=== PATIENT | female | born 2000 | race Caucasian/White ===

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

== ENCOUNTER 2019-10-13 17:36 | Inpatient (IN) | payer MEDICAID ==
[2019-10-13] MEDS ORDERED: Sodium Chloride 0.9% 2.5 ML Syringe FLUSH PRN (19:10)
[2019-10-13] MEDS ORDERED: Water For Irrigation,Sterile 1,000 ML Container IRR PRN (19:10)
[2019-10-13] MEDS ORDERED: Ondansetron 4 MG/2 ML SDV IVPUSH PRN (19:10)
[2019-10-13] MEDS ORDERED: Tranexamic Acid 1,000 MG in Sodium Chloride 0.9% 100 ML IV PRN (19:10)
[2019-10-13] MEDS ORDERED: Nalbuphine 10 MG/1 ML Vial IVPUSH PRN (19:10)
[2019-10-13] MEDS ORDERED: Sodium Chloride 0.9% 10 ML Syringe FLUSH PRN (19:10)
[2019-10-13] MEDS ORDERED: Carboprost Tromethamine 250 MCG/1 ML Amp IM PRN (19:10)
[2019-10-13] MEDS ORDERED: Sodium Chloride 0.9% 10 ML SDV IV PRN (19:10)
[2019-10-13] MEDS ORDERED: Lidocaine 1% 50 ML MDV INJECT PRN (19:10)
[2019-10-13] MEDS ORDERED: Misoprostol 200 MCG Tab PO PRN (19:10)
[2019-10-13] MEDS ORDERED: Methylergonovine 0.2 MG/1 ML Amp IM PRN (19:10)
[2019-10-13] MEDS ORDERED: Oxytocin/0.9 % Sodium Chloride 30 UNIT/500 ML BAG IV SCH (19:15)
--- NOTE | 2019-10-13 19:27 | PCM.LDHP ---
L&D History of Present Illness - General Date of Service: 10/13/19 Admit Problem/Dx: Patient Status Order with Admit Dx/Problem 10/13/19 17:42 Patient Status [ADT] Routine 10/13/19 19:10 Patient Status [ADT] Routine Admission Diagnosis/Problem Admission Diagnosis/Problem 10/13/19 19:21 19yo EDC 10/07/2019 40 6/7wks, A+, RI, GBS pos. Comes in active labor, desires epidural. Source of Information: Patient History Limitations: Reports: No Limitations - History of Present Illness Improves with: Reports: None Worsens with: Reports: None Associated Symptoms: Reports: N - Related Data Allergies/Adverse Reactions: Allergies Allergy/AdvReac Type Severity Reaction Status Date / Time No Known Allergies Allergy Verified 01/25/17 12:47 Home Medications: Home Meds Albuterol [Proventil Neb Soln] 2.5 mg NEB Q4HRRT PRN 01/25/17 [History] Cetirizine [ZyrTEC] 10 mg PO DAILY 01/25/17 [History] Albuterol Sulfate [Proair Hfa] 2 puff INH Q4HR #1 inhaler 01/28/17 [Rx] Fluticasone/Salmeterol [Advair Diskus 500-50] 1 puff INH BID #1 diskus 01/28/17 [Rx] Montelukast Sodium [Singulair] 10 mg PO DAILY 30 Days #30 tablet 01/28/17 [Rx] Prednisone [IMW: predniSONE] 40 mg PO WITHBREAKFAST #10 tab 01/28/17 [Rx] Past Medical History HEENT History: Reports: None Cardiovascular History: Reports: None Respiratory History: Reports: Asthma Gastrointestinal History: Reports: None Genitourinary History: Reports: None 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 Musculoskeletal History: Reports: None Neurological History: Reports: None Psychiatric History: Reports: None Endocrine/Metabolic History: Reports: None Hematologic History: Reports: None Immunologic History: Reports: None Oncologic (Cancer) History: Reports: None Dermatologic History: Reports: None - Infectious Disease History Infectious Disease History: Reports: None - Past Surgical History Head Surgeries/Procedures: Reports: None HEENT Surgical History: Reports: None Cardiovascular Surgical History: Reports: None Respiratory Surgical History: Reports: None GI Surgical History: Reports: None Endocrine Surgical History: Reports: None Neurological Surgical History: Reports: None Dermatological Surgical History: Reports: None Social & Family History - Family History Family Medical History: Noncontributory - Caffeine Use Caffeine Use: Reports: None H&P Review of Systems - Review of Systems: Review Of Systems: See Below General: Reports: No Symptoms HEENT: Reports: No Symptoms Pulmonary: Reports: No Symptoms Cardiovascular: Reports: No Symptoms Gastrointestinal: Reports: No Symptoms Genitourinary: Reports: No Symptoms Musculoskeletal: Reports: No Symptoms Skin: Reports: No Symptoms Psychiatric: Reports: No Symptoms Neurological: Reports: No Symptoms Hematologic/Lymphatic: Reports: No Symptoms Immunologic: Reports: No Symptoms L&D Exam - Exam Exam: See Below - OB Specific Contraction Intensity: Strong Movement: Active Heart Tones: Present Heart Tones per Min: 150 Heart Rate (FHR) Variability: Moderate (6-25 bmp) Presentation: Vertex - Murphy Score Murphy Score Cervix Position: Posterior Murphy Score Consistency: Soft Murphy Score Effacement: >80% Murphy Score Dilation: > 5 cm Murphy Score Infant's Station: -2 Murphy Score Total: 9 - Exam General: Alert, Oriented, Cooperative HEENT: Hearing Intact Lungs: Clear to Auscultation, Normal Respiratory Effort. No: Decreased Breath Sounds Cardiovascular: Regular Rate, Regular Rhythm, Normal S1, Normal S2 GI/Abdominal Exam: Soft, Non-Tender, Pelvis Stable Rectal Exam: Deferred Genitourinary: Normal external exam, Normal bimanual exam. No: Cervical fluid, Vaginal bleeding Extremities: Normal Inspection, Normal Range of Motion Skin: Warm, Dry, Intact Neurological: Cranial Nerves Intact, Normal Speech, Normal Tone, Sensation Intact Psychiatric: Alert, Normal Affect, Normal Mood - Patient Data Lab Results Last 24 hrs: Laboratory Results - last 24 hr 10/13/19 Range/Units 17:00 Urine Color YELLOW Urine Appearance CLEAR Urine pH 6.5 (5.0-8.0) Ur Specific [place] 1.020 (1.001-1.035) Urine Protein NEGATIVE (NEGATIVE) mg/dL Urine Glucose (UA) NEGATIVE (NEGATIVE) mg/dL Urine Ketones NEGATIVE (NEGATIVE) mg/dL Urine Occult Blood NEGATIVE (NEGATIVE) Urine Nitrite NEGATIVE (NEGATIVE) Urine Bilirubin NEGATIVE (NEGATIVE) Urine Urobilinogen 0.2 (<2.0) EU/dL Ur Leukocyte Esterase NEGATIVE (NEGATIVE) - Problem List (1) Supervision of normal IUP (intrauterine ) in primigravida SNOMED Code(s): 17634618, 417165363, 325002278, 016488350 ICD Code: Z34.00 - ENCNTR FOR SUPRVSN OF NORMAL FIRST , UNSP TRIMESTER Status: Acute Priority: High Current Visit: Yes Qualifiers: Trimester: third trimester Qualified Code(s): Z34.03 - Encounter for supervision of normal first , third trimester Problem List Initiated/Reviewed/Updated: Yes Orders Last 24hrs: Active Orders 24 hr Category Date Time Status Patient Status [ADT] Routine ADT 10/13/19 19:10 Active Heart Tones [RC] CONTINUOUS Care 10/13/19 19:10 Active Non Stress Test [RC] PER UNIT ROUTINE Care 10/13/19 17:42 Active May Shower [RC] ASDIRECTED Care 10/13/19 19:10 Active Notify Provider [RC] PRN Care 10/13/19 19:10 Active Peripheral IV Care [RC] PRN Care 10/13/19 19:10 Active Up ad Otilia [RC] ASDIRECTED Care 10/13/19 17:42 Active Vaginal Exam [RC] Click to Edit Care 10/13/19 17:42 Active Vital Signs [RC] PER UNIT ROUTINE Care 10/13/19 17:42 Active CBC W/O DIFF,HEMOGRAM [HEME] Routine Lab 10/13/19 19:10 Ordered RPR (SYPHILIS SERO) W/ RFLX [REF] Routine Lab 10/13/19 19:10 Ordered TYPE AND SCREEN [BBK] Routine Lab 10/13/19 19:10 Ordered Ampicillin 1 gm Med 10/14/19 00:01 Active Sodium Chloride 0.9% [Normal Saline] 50 ml IV Q4H Ampicillin 2 gm Med 10/13/19 20:00 Active Sodium Chloride 0.9% [Normal Saline] 100 ml IV ONETIME Carboprost Tromethamine [Hemabate DS] Med 10/13/19 19:10 Active 250 mcg IM ASDIRECTED PRN Lactated Ringers [Ringers, Lactated] 1,000 ml Med 10/13/19 19:15 Active IV ASDIRECTED Lidocaine 1% [Xylocaine 1%] Med 10/13/19 19:10 Active 50 ml INJECT ONETIME PRN Methylergonovine [Methergine] Med 10/13/19 19:10 Active 0.2 mg IM ASDIRECTED PRN Nalbuphine [Nubain] Med 10/13/19 19:10 Active 10 mg IVPUSH Q1H PRN Ondansetron [Zofran] Med 10/13/19 19:10 Active 4 mg IVPUSH Q6H PRN Oxytocin/0.9 % Sodium Chloride [Oxytocin 30 Unit/500 ML Med 10/13/19 19:15 Ordered -NS] 30 unit in 500 ml IV TITRATE Sodium Chloride 0.9% [Normal Saline] Med 10/13/19 19:10 Ordered 10 ml IV ASDIRECTED PRN Sodium Chloride 0.9% [Saline Flush] Med 10/13/19 19:10 Ordered 10 ml FLUSH ASDIRECTED PRN Sodium Chloride 0.9% [Saline Flush] Med 10/13/19 19:10 Active 2.5 ml FLUSH ASDIRECTED PRN Tranexamic Acid [Cyklokapron] 1,000 mg Med 10/13/19 19:10 Active Sodium Chloride 0.9% [Normal Saline] 100 ml IV ONETIME Water For Irrigation,Sterile [Sterile Water for Med 10/13/19 19:10 Active Irrigation] 1,000 ml IRR ASDIRECTED PRN miSOPROStoL [Cytotec] Med 10/13/19 19:10 Active 200 mcg PO ONETIME PRN Scalp Electrode [WOMSER] Per Unit Routine Oth 10/13/19 19:10 Ordered Peripheral IV Insertion Adult [OM.PC] Routine Oth 10/13/19 19:10 Ordered Resuscitation Status Routine Resus Stat 10/13/19 17:42 Ordered Medication Orders Carboprost Tromethamine (Hemabate Ds) 250 mcg IM ASDIRECTED PRN PRN Reason: Post Hemorrhage Tranexamic Acid 1,000 mg/ (Sodium Chloride) 110 mls @ 660 mls/hr IV ONETIME PRN PRN Reason: Bleeding Lactated Ringer's (Ringers, Lactated) 1,000 mls @ 150 mls/hr IV ASDIRECTED BROCK Oxytocin/Sodium Chloride (Oxytocin 30 Unit/500 Ml-Ns) 30 unit in 500 mls @ 999 mls/hr IV TITRATE BROCK Ampicillin Sodium 2 gm/ Sodium (Chloride) 100 mls @ 200 mls/hr IV ONETIME ONE Stop: 10/13/19 20:29 Ampicillin Sodium 1 gm/ Sodium (Chloride) 50 mls @ 100 mls/hr IV Q4H [facility] Lidocaine HCl (Xylocaine 1%) 50 ml INJECT ONETIME PRN PRN Reason: Laceration repair Methylergonovine Maleate (Methergine) 0.2 mg IM ASDIRECTED PRN PRN Reason: Post Hemorrhage Misoprostol (Cytotec) 200 mcg PO ONETIME PRN PRN Reason: Post Hemorrhage Nalbuphine HCl (Nubain) 10 mg IVPUSH Q1H PRN PRN Reason: Pain (severe 7-10) Ondansetron HCl (Zofran) 4 mg IVPUSH Q6H PRN PRN Reason: Nausea/Vomiting Sodium Chloride (Saline Flush) 10 ml FLUSH ASDIRECTED PRN PRN Reason: Keep Vein Open Sodium Chloride (Saline Flush) 2.5 ml FLUSH ASDIRECTED PRN PRN Reason: Keep Vein Open Sodium Chloride (Normal Saline) 10 ml IV ASDIRECTED PRN PRN Reason: IV Use Sterile Water (Sterile Water For Irrigation) 1,000 ml IRR ASDIRECTED PRN PRN Reason: delivery Assessment/Plan Comment:: Labor A: 19yo EDC 10/07/2019 40 6/7wks, A+, RI, GBS pos. Comes in active labor, desires epidural. P: Admit, amp for GBS pos, epidural now, anticipate . Dr Wright updated.
[2019-10-13] MEDS: Lactated Ringers 1,000 ML IV SCH (19:39)
[2019-10-13] MEDS ORDERED: Ampicillin 2 GM in Sodium Chloride 0.9% 100 ML IV ONE (20:00)
[2019-10-13] MEDS: Ampicillin 1 GM in Sodium Chloride 0.9% 50 ML IV SCH (23:24)
[2019-10-13] MEDS ORDERED: Bupivicaine/fentaNYL/NS 250 ML ONE (23:59)
--- NOTE | 2019-10-14 00:29 | PCM.PREANE ---
Preanesthetic Assessment - Procedure Proposed Procedure: Continuous Labor Epidural - Anesthesia/Transfusion/Family Hx Anesthesia History: No Prior Anesthesia Transfusion History: No Prior Transfusion(s) - Review of Systems General: No Symptoms Pulmonary: No Symptoms Cardiovascular: No Symptoms Gastrointestinal: No Symptoms Neurological: No Symptoms Other: Reports: None - Physical Assessment Height: 5 ft 11 in Weight: 122.47 kg ASA Class: 2 Mental Status: Alert & Oriented x3 Airway Class: Mallampati = 2 Dentition: Reports: Normal Dentition ROM/Head Extension: Full Lungs: Clear to Auscultation, Normal Respiratory Effort Cardiovascular: Regular Rate, Regular Rhythm - Lab Values: Laboratory Last Values WBC 8.73 K/uL (4.0-11.0) 10/13/19 19: RBC 3.80 M/uL (4.30-5.90) L 10/13/19 19:28 Hgb 11.2 g/dL (12.0-16.0) L 10/13/19 19: Hct 34.4 % (36.0-46.0) L 10/13/19 19:28 MCV 90.5 fL (80.0-98.0) 10/13/19 19:28 MCH 29.5 pg (27.0-32.0) 10/13/19 19:28 MCHC 32.6 g/dL (31.0-37.0) 10/13/19 19:28 RDW Std Deviation 46.7 fl (28.0-62.0) 10/13/19 19:28 RDW Coeff of Robson 14 % (11.0-15.0) 10/13/19 19:28 Plt Count 258 K/uL (150-400) 10/13/19 19:28 MPV 10.90 fL (7.40-12.00) 10/13/19 19:28 Nucleated RBC % 0.0 /100WBC 10/13/19 19:28 Nucleated RBCs # 0 K/uL 10/13/19 19:28 Urine Color YELLOW 10/13/19 17:00 Urine Appearance CLEAR 10/13/19 17:00 Urine pH 6.5 (5.0-8.0) 10/13/19 17:00 Ur Specific [place] 1.020 (1.001-1.035) 10/13/19 17:00 Urine Protein NEGATIVE mg/dL (NEGATIVE) 10/13/19 17:00 Urine Glucose (UA) NEGATIVE mg/dL (NEGATIVE) 10/13/19 17:00 Urine Ketones NEGATIVE mg/dL (NEGATIVE) 10/13/19 17:00 Urine Occult Blood NEGATIVE (NEGATIVE) 10/13/19 17:00 Urine Nitrite NEGATIVE (NEGATIVE) 10/13/19 17:00 Urine Bilirubin NEGATIVE (NEGATIVE) 10/13/19 17:00 Urine Urobilinogen 0.2 EU/dL (<2.0) 10/13/19 17:00 Ur Leukocyte Esterase NEGATIVE (NEGATIVE) 10/13/19 17:00 Blood Type A POSITIVE 10/13/19 19:32 Antibody Screen NEGATIVE 10/13/19 19:32 - Allergies Allergies/Adverse Reactions: Allergies Allergy/AdvReac Type Severity Reaction Status Date / Time No Known Allergies Allergy Verified 01/25/17 12:47 - Anesthesia Plan Free Text/Narrative:: Continuous Labor Epidural - Acknowledgements Anesthesia Type Planned: Epidural Pt an Appropriate Candidate for the Planned Anesthesia: Yes Alternatives and Risks of Anesthesia Discussed w Pt/Guardian: Yes Pt/Guardian Understands and Agrees with Anesthesia Plan: Yes PreAnesthesia Questionnaire HEENT History: Reports: None Cardiovascular History: Reports: None Respiratory History: Reports: Asthma Gastrointestinal History: Reports: None Genitourinary History: Reports: None 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 Para: 0 LMP (Approximate): Musculoskeletal History: Reports: None Neurological History: Reports: None Psychiatric History: Reports: None Endocrine/Metabolic History: Reports: None Hematologic History: Reports: None Immunologic History: Reports: None Oncologic (Cancer) History: Reports: None Dermatologic History: Reports: None - Infectious Disease History Infectious Disease History: Reports: None - Past Surgical History Head Surgeries/Procedures: Reports: None HEENT Surgical History: Reports: Oral Surgery Other HEENT Surgeries/Procedures: [place] teeth Cardiovascular Surgical History: Reports: None Respiratory Surgical History: Reports: None GI Surgical History: Reports: None Endocrine Surgical History: Reports: None Neurological Surgical History: Reports: None Dermatological Surgical History: Reports: None - SUBSTANCE USE Smoking Status *Q: Never Smoker Second Hand Smoke Exposure: No Recreational Drug Use History: No - HOME MEDS Home Medications: Home Meds Albuterol [Proventil Neb Soln] 2.5 mg NEB Q4HRRT PRN 01/25/17 [History] Cetirizine [ZyrTEC] 10 mg PO DAILY 01/25/17 [History] Albuterol Sulfate [Proair Hfa] 2 puff INH Q4HR #1 inhaler 01/28/17 [Rx] Fluticasone/Salmeterol [Advair Diskus 500-50] 1 puff INH BID #1 diskus 01/28/17 [Rx] Montelukast Sodium [Singulair] 10 mg PO DAILY 30 Days #30 tablet 01/28/17 [Rx] Prednisone [IMW: predniSONE] 40 mg PO WITHBREAKFAST #10 tab 01/28/17 [Rx] - CURRENT (IN HOUSE) MEDS Current Meds: Current Medications Carboprost Tromethamine (Hemabate Ds) 250 mcg IM ASDIRECTED PRN PRN Reason: Post Hemorrhage Tranexamic Acid 1,000 mg/ (Sodium Chloride) 110 mls @ 660 mls/hr IV ONETIME PRN PRN Reason: Bleeding Lactated Ringer's (Ringers, Lactated) 1,000 mls @ 150 mls/hr IV ASDIRECTED [facility] Last Infusion: 10/13/19 23:57 Dose: 999 mls/hr Oxytocin/Sodium Chloride (Oxytocin 30 Unit/500 Ml-Ns) 30 unit in 500 mls @ 999 mls/hr IV TITRATE [facility] Ampicillin Sodium 1 gm/ Sodium (Chloride) 50 mls @ 100 mls/hr IV Q4H [facility] Last Infusion: 10/13/19 23:57 Dose: Infused Lidocaine HCl (Xylocaine 1%) 50 ml INJECT ONETIME PRN PRN Reason: Laceration repair Methylergonovine Maleate (Methergine) 0.2 mg IM ASDIRECTED PRN PRN Reason: Post Hemorrhage Misoprostol (Cytotec) 200 mcg PO ONETIME PRN PRN Reason: Post Hemorrhage Nalbuphine HCl (Nubain) 10 mg IVPUSH Q1H PRN PRN Reason: Pain (severe 7-10) Ondansetron HCl (Zofran) 4 mg IVPUSH Q6H PRN PRN Reason: Nausea/Vomiting Sodium Chloride (Saline Flush) 10 ml FLUSH ASDIRECTED PRN PRN Reason: Keep Vein Open Sodium Chloride (Saline Flush) 2.5 ml FLUSH ASDIRECTED PRN PRN Reason: Keep Vein Open Sodium Chloride (Normal Saline) 10 ml IV ASDIRECTED PRN PRN Reason: IV Use Sterile Water (Sterile Water For Irrigation) 1,000 ml IRR ASDIRECTED PRN PRN Reason: delivery Discontinued Medications Ampicillin Sodium 2 gm/ Sodium (Chloride) 100 mls @ 200 mls/hr IV ONETIME ONE Stop: 10/13/19 20:29 Last Admin: 10/13/19 19:43 Dose: 200 mls/hr Fentanyl/Bupivacaine HCl (Fentanyl/Bupivacaine/Ns 2 Mcg-0.125% 250 Ml) Confirm Administered Dose 250 mls @ as directed .ROUTE .STK-MED ONE Stop: 10/14/19 00:00
[2019-10-14] MEDS ORDERED: Oxytocin/0.9 % Sodium Chloride 30 UNIT/500 ML BAG IV SCH (00:45)
[2019-10-14] MEDS: Lactated Ringers 1,000 ML IV SCH (00:46)
[2019-10-14] MEDS: Ampicillin 1 GM in Sodium Chloride 0.9% 50 ML IV SCH ×2 (03:30→08:05)
--- NOTE | 2019-10-14 08:23 | PCM.PN ---
- General Info Date of Service: 10/14/19 Admission Dx/Problem (Free Text): Patient Status Order with Admit Dx/Problem 10/13/19 17:42 Patient Status [ADT] Routine 10/13/19 19:10 Patient Status [ADT] Routine Admission Diagnosis/Problem Admission Diagnosis/Problem 10/13/19 19:21 19yo EDC 10/07/2019 40 6/7wks, A+, RI, GBS pos. Comes in active labor, desires epidural. Functional Status: Reports: New Symptoms (Increased pain with epidural) - Review of Systems General: Reports: No Symptoms HEENT: Reports: No Symptoms Pulmonary: Reports: No Symptoms Cardiovascular: Reports: No Symptoms Gastrointestinal: Reports: No Symptoms Genitourinary: Reports: No Symptoms Musculoskeletal: Reports: No Symptoms Skin: Reports: No Symptoms Neurological: Reports: No Symptoms Psychiatric: Reports: No Symptoms - Patient Data Weight - Most Recent: 122.47 kg Lab Results Last 24 Hours: Laboratory Results - last 24 hr 10/13/19 10/13/19 10/13/19 Range/Units 17:00 19:28 19:32 WBC 8.73 (4.0-11.0) K/uL RBC 3.80 L (4.30-5.90) M/uL Hgb 11.2 L (12.0-16.0) g/dL Hct 34.4 L (36.0-46.0) % MCV 90.5 (80.0-98.0) fL MCH 29.5 (27.0-32.0) pg MCHC 32.6 (31.0-37.0) g/dL RDW Std Deviation 46.7 (28.0-62.0) fl RDW Coeff of Robson 14 (11.0-15.0) % Plt Count 258 (150-400) K/uL MPV 10.90 (7.40-12.00) fL Nucleated RBC % 0.0 /100WBC Nucleated RBCs # 0 K/uL Urine Color YELLOW Urine Appearance CLEAR Urine pH 6.5 (5.0-8.0) Ur Specific [place] 1.020 (1.001-1.035) Urine Protein NEGATIVE (NEGATIVE) mg/dL Urine Glucose (UA) NEGATIVE (NEGATIVE) mg/dL Urine Ketones NEGATIVE (NEGATIVE) mg/dL Urine Occult Blood NEGATIVE (NEGATIVE) Urine Nitrite NEGATIVE (NEGATIVE) Urine Bilirubin NEGATIVE (NEGATIVE) Urine Urobilinogen 0.2 (<2.0) EU/dL Ur Leukocyte Esterase NEGATIVE (NEGATIVE) Blood Type A POSITIVE Antibody Screen NEGATIVE Med Orders - Current: Current Medications Carboprost Tromethamine (Hemabate Ds) 250 mcg IM ASDIRECTED PRN PRN Reason: Post Hemorrhage Tranexamic Acid 1,000 mg/ (Sodium Chloride) 110 mls @ 660 mls/hr IV ONETIME PRN PRN Reason: Bleeding Lactated Ringer's (Ringers, Lactated) 1,000 mls @ 150 mls/hr IV ASDIRECTED [facility] Last Infusion: 10/14/19 03:44 Dose: 50 mls/hr Oxytocin/Sodium Chloride (Oxytocin 30 Unit/500 Ml-Ns) 30 unit in 500 mls @ 999 mls/hr IV TITRATE [facility] Ampicillin Sodium 1 gm/ Sodium (Chloride) 50 mls @ 100 mls/hr IV Q4H [facility] Last Admin: 10/14/19 08:05 Dose: 100 mls/hr Oxytocin/Sodium Chloride (Oxytocin 30 Unit/500 Ml-Ns) 30 unit in 500 mls @ 2 mls/hr IV TITRATE BROCK; Protocol Last Infusion: 10/14/19 07:50 Dose: 12 munits/min, 12 mls/hr Lidocaine HCl (Xylocaine 1%) 50 ml INJECT ONETIME PRN PRN Reason: Laceration repair Methylergonovine Maleate (Methergine) 0.2 mg IM ASDIRECTED PRN PRN Reason: Post Hemorrhage Misoprostol (Cytotec) 200 mcg PO ONETIME PRN PRN Reason: Post Hemorrhage Nalbuphine HCl (Nubain) 10 mg IVPUSH Q1H PRN PRN Reason: Pain (severe 7-10) Ondansetron HCl (Zofran) 4 mg IVPUSH Q6H PRN PRN Reason: Nausea/Vomiting Sodium Chloride (Saline Flush) 10 ml FLUSH ASDIRECTED PRN PRN Reason: Keep Vein Open Sodium Chloride (Saline Flush) 2.5 ml FLUSH ASDIRECTED PRN PRN Reason: Keep Vein Open Sodium Chloride (Normal Saline) 10 ml IV ASDIRECTED PRN PRN Reason: IV Use Sterile Water (Sterile Water For Irrigation) 1,000 ml IRR ASDIRECTED PRN PRN Reason: delivery Discontinued Medications Ampicillin Sodium 2 gm/ Sodium (Chloride) 100 mls @ 200 mls/hr IV ONETIME ONE Stop: 10/13/19 20:29 Last Admin: 10/13/19 19:43 Dose: 200 mls/hr Fentanyl/Bupivacaine HCl (Fentanyl/Bupivacaine/Ns 2 Mcg-0.125% 250 Ml) Confirm Administered Dose 250 mls @ as directed .ROUTE .STK-MED ONE Stop: 10/14/19 00:00 - Exam General: Alert, Oriented Lungs: Normal Respiratory Effort GI/Abdominal Exam: Soft, Non-Tender, Pelvis Stable (Female) Exam: Normal External Exam, Normal Bimanual Exam, Cervical Lesions. No: Vaginal Bleeding Back Exam: Normal Inspection Extremities: Normal Inspection, No Pedal Edema Skin: Warm, Dry, Intact Neurological: No New Focal Deficit, Normal Speech, Normal Tone Psy/Mental Status: Alert, Normal Affect, Normal Mood Sepsis Event Note - Evaluation Sepsis Screening Result: No Definite Risk - Problem List & Annotations (1) Supervision of normal IUP (intrauterine ) in primigravida SNOMED Code(s): 83918333, 254798543, 565266159, [id number] Code(s): Z34.00 - ENCNTR FOR SUPRVSN OF NORMAL FIRST , UNSP TRIMESTER Status: Acute Priority: High Current Visit: Yes Qualifiers: Trimester: third trimester Qualified Code(s): Z34.03 - Encounter for supervision of normal first , third trimester - Problem List Review Problem List Initiated/Reviewed/Updated: Yes - My Orders Last 24 Hours: My Active Orders 10/13/19 19:10 Patient Status [ADT] Routine Heart Tones [RC] CONTINUOUS May Shower [RC] ASDIRECTED Notify Provider [RC] PRN Peripheral IV Care [RC] PRN Carboprost Tromethamine [Hemabate DS] 250 mcg IM ASDIRECTED PRN Lidocaine 1% [Xylocaine 1%] 50 ml INJECT ONETIME PRN Methylergonovine [Methergine] 0.2 mg IM ASDIRECTED PRN Nalbuphine [Nubain] 10 mg IVPUSH Q1H PRN Ondansetron [Zofran] 4 mg IVPUSH Q6H PRN Sodium Chloride 0.9% [Normal Saline] 10 ml IV ASDIRECTED PRN Sodium Chloride 0.9% [Saline Flush] 10 ml FLUSH ASDIRECTED PRN Sodium Chloride 0.9% [Saline Flush] 2.5 ml FLUSH ASDIRECTED PRN Tranexamic Acid [Cyklokapron] 1,000 mg Sodium Chloride 0.9% [Normal Saline] 100 ml IV ONETIME Water For Irrigation,Sterile [Sterile Water for Irrigation] 1,000 ml IRR ASDIRECTED PRN miSOPROStoL [Cytotec] 200 mcg PO ONETIME PRN Scalp Electrode [WOMSER] Per Unit Routine Peripheral IV Insertion Adult [OM.PC] Routine 10/13/19 19:15 Lactated Ringers [Ringers, Lactated] 1,000 ml IV ASDIRECTED Oxytocin/0.9 % Sodium Chloride [Oxytocin 30 Unit/500 ML-NS] 30 unit in 500 ml IV TITRATE 10/13/19 19:28 RPR (SYPHILIS SERO) W/ RFLX [REF] Routine 10/14/19 00:01 Ampicillin 1 gm Sodium Chloride 0.9% [Normal Saline] 50 ml IV Q4H - Plan Plan:: Labor A: 19yo EDC 10/07/2019 40 6/7wks, A+, RI, GBS pos. Comes in active labor, desires epidural. P: Admit, amp for GBS pos, epidural now, anticipate . Dr Wright updated. Labor A: Resting with epidural. C/O left side pain. at bs for support P: Anes called for breakthrough pain. Pitocin to 12mu/min. Disc slow progress. Will give labor 3 more hours and if little or no change will recommend . Dr Wright updated to plan of care.
[2019-10-14] MEDS ORDERED: Benzocaine/Menthol 20%-0.5% Spray 78 GM Cannister TOP PRN (11:52)
[2019-10-14] MEDS ORDERED: Docusate Sodium 100 MG Cap PO PRN (11:52)
[2019-10-14] MEDS ORDERED: Bisacodyl 10 MG Supp RECTAL PRN (11:52)
[2019-10-14] MEDS ORDERED: Acetaminophen 500 MG Tab PO PRN ×2 (11:52)
[2019-10-14] MEDS ORDERED: Ibuprofen 400 MG Tab PO PRN (11:52)
[2019-10-14] MEDS ORDERED: Witch Hazel Medicated Pads 40/Jar TOP PRN (11:52)
[2019-10-14] MEDS ORDERED: Lanolin 100% Cream 7 GM Tube TOP PRN (11:52)
[2019-10-14] MEDS ORDERED: oxyCODONE 5 MG Tab PO PRN (11:52)
[2019-10-14] MEDS: Ibuprofen 800 MG Tab PO PRN (19:52)
[2019-10-15] MEDS: Ibuprofen 800 MG Tab PO PRN ×2 (04:07→10:59)
--- NOTE | 2019-10-15 07:39 | PCM48HPAN ---
Post Anesthesia Note - EVALUATION WITHIN 48HRS OF ANESTHETIC Vital Signs in Normal Range: Yes Patient Participated in Evaluation: Yes Respiratory Function Stable: Yes Airway Patent: Yes Cardiovascular Function Stable: Yes Hydration Status Stable: Yes Pain Control Satisfactory: Yes Nausea and Vomiting Control Satisfactory: Yes Mental Status Recovered: Yes Vital Signs: Last Vital Signs Temp 36.4 C 10/15/19 04:22 Pulse 52 L 10/15/19 04:22 Resp 16 10/15/19 04:22 BP 124/64 10/15/19 04:22 Pulse Ox 99 10/15/19 04:22
--- NOTE | 2019-10-15 08:30 | PCM.DCSUM1 ---
Discharge Summary - Hospital Course Free Text/Narrative:: Discharge home with baby. Follow up in the clinic in 6 weeks for routine visit. Diagnosis: Stroke: No Modified Bhavana Scale: No Symptoms at All Modified Woodman Scale Score: 0 - Discharge Data Discharge Date: 10/15/19 Discharge Disposition: Home, Self-Care 01 Condition: Good - Referral to Home Health Primary Care Physician: PCP None - Discharge Diagnosis/Problem(s) (1) Vacuum-assisted vaginal delivery SNOMED Code(s): [id number] ICD Code: Z37.9 - OUTCOME OF DELIVERY, UNSPECIFIED Status: Acute Priority : High Current Visit: Yes - Patient Instructions Diet: Regular Diet as Tolerated, Drink 8-10+ Glasses/Day Activity: As Tolerated, No Strenuous Activities, Rest and Relax Today Driving: May Drive Today Showering/Bathing: May Shower Notify Provider of: Fever, Increased Pain, Swelling and Redness, Drainage, Nausea and/or Vomiting - Discharge Plan *PRESCRIPTION DRUG MONITORING PROGRAM REVIEWED*: Not Applicable *COPY OF PRESCRIPTION DRUG MONITORING REPORT IN PATIENT CHAYO: Not Applicable Prescriptions/Med Rec: Ibuprofen [Motrin] 800 mg PO Q6H PRN #90 tablet PRN Reason: Pain Home Medications: Home Meds Albuterol [Proventil Neb Soln] 2.5 mg NEB Q4HRRT PRN 01/25/17 [History] Cetirizine [ZyrTEC] 10 mg PO DAILY 01/25/17 [History] Albuterol Sulfate [Proair Hfa] 2 puff INH Q4HR #1 inhaler 01/28/17 [Rx] Fluticasone/Salmeterol [Advair Diskus 500-50] 1 puff INH BID #1 diskus 01/28/17 [Rx] Montelukast Sodium [Singulair] 10 mg PO DAILY 30 Days #30 tablet 01/28/17 [Rx] Prednisone [IMW: predniSONE] 40 mg PO WITHBREAKFAST #10 tab 01/28/17 [Rx] Ibuprofen [Motrin] 800 mg PO Q6H PRN #90 tablet 10/15/19 [Rx] Oxygen Therapy Mode: Room Air - Discharge Summary/Plan Comment DC Time >30 min.: Yes - General Info Date of Service: 10/15/19 Admission Dx/Problem (Free Text: Patient Status Order with Admit Dx/Problem 10/13/19 17:42 Patient Status [ADT] Routine 10/13/19 19:10 Patient Status [ADT] Routine Admission Diagnosis/Problem Admission Diagnosis/Problem 10/13/19 19:21 19yo EDC 10/07/2019 40 6/7wks, A+, RI, GBS pos. Comes in active labor, desires epidural. Functional Status: Reports: Pain Controlled, Tolerating Diet, Ambulating, Urinating - Review of Systems General: Reports: No Symptoms HEENT: Reports: No Symptoms Pulmonary: Reports: No Symptoms Cardiovascular: Reports: No Symptoms Gastrointestinal: Reports: No Symptoms Genitourinary: Reports: No Symptoms Musculoskeletal: Reports: No Symptoms Skin: Reports: No Symptoms Neurological: Reports: No Symptoms Psychiatric: Reports: No Symptoms - Patient Data Vitals - Most Recent: Last Vital Signs Temp 97.6 F 10/15/19 04:22 Pulse 52 L 10/15/19 04:22 Resp 16 10/15/19 04:22 BP 124/64 10/15/19 04:22 Pulse Ox 99 10/15/19 04:22 Weight - Most Recent: 270 lb Lab Results - Last 24 hrs: Laboratory Results - last 24 hr 10/14/19 Range/Units 10:20 SARS-CoV-2 RNA (RT-PCR) NEGATIVE (NEGATIVE) Med Orders - Current: Current Medications Acetaminophen (Tylenol Extra Strength) 500 mg PO Q4H PRN PRN Reason: Pain Acetaminophen (Tylenol Extra Strength) 1,000 mg PO Q4H PRN PRN Reason: Pain Benzocaine/Menthol (Dermoplast Pain Relief 20%-0.5% [place]) 78 gm TOP ASDIRECTED PRN PRN Reason: Perineal Comfort Measure Bisacodyl (Dulcolax) 10 mg RECTAL ONETIME PRN PRN Reason: Constipation Docusate Sodium (Colace) 100 mg PO BID PRN PRN Reason: Constipation Emollient Ointment (Lansinoh Hpa) 0 gm TOP ASDIRECTED PRN PRN Reason: Sore Nipples Ibuprofen (Motrin) 400 mg PO Q4H PRN PRN Reason: Pain Ibuprofen (Motrin) 800 mg PO Q6H PRN PRN Reason: Pain Last Admin: 10/15/19 04:07 Dose: 800 mg Oxycodone HCl (Oxycodone) 5 mg PO Q2H PRN PRN Reason: Pain Witch Tori (Tucks) 1 pad TOP ASDIRECTED PRN PRN Reason: comfort care Discontinued Medications Carboprost Tromethamine (Hemabate Ds) 250 mcg IM ASDIRECTED PRN PRN Reason: Post Hemorrhage Tranexamic Acid 1,000 mg/ (Sodium Chloride) 110 mls @ 660 mls/hr IV ONETIME PRN PRN Reason: Bleeding Lactated Ringer's (Ringers, Lactated) 1,000 mls @ 150 mls/hr IV ASDIRECTED BROCK Last Infusion: 10/14/19 03:44 Dose: 50 mls/hr Oxytocin/Sodium Chloride (Oxytocin 30 Unit/500 Ml-Ns) 30 unit in 500 mls @ 999 mls/hr IV TITRATE BROCK Ampicillin Sodium 2 gm/ Sodium (Chloride) 100 mls @ 200 mls/hr IV ONETIME ONE Stop: 10/13/19 20:29 Last Admin: 10/13/19 19:43 Dose: 200 mls/hr Ampicillin Sodium 1 gm/ Sodium (Chloride) 50 mls @ 100 mls/hr IV Q4H [facility] Last Admin: 10/14/19 08:05 Dose: 100 mls/hr Fentanyl/Bupivacaine HCl (Fentanyl/Bupivacaine/Ns 2 Mcg-0.125% 250 Ml) Confirm Administered Dose 250 mls @ as directed .ROUTE .K-MED ONE Stop: 10/14/19 00:00 Oxytocin/Sodium Chloride (Oxytocin 30 Unit/500 Ml-Ns) 30 unit in 500 mls @ 2 mls/hr IV TITRATE BROCK; Protocol Last Infusion: 10/14/19 08:20 Dose: 14 munits/min, 14 mls/hr Lidocaine HCl (Xylocaine 1%) 50 ml INJECT ONETIME PRN PRN Reason: Laceration repair Methylergonovine Maleate (Methergine) 0.2 mg IM ASDIRECTED PRN PRN Reason: Post Hemorrhage Misoprostol (Cytotec) 200 mcg PO ONETIME PRN PRN Reason: Post Hemorrhage Nalbuphine HCl (Nubain) 10 mg IVPUSH Q1H PRN PRN Reason: Pain (severe 7-10) Ondansetron HCl (Zofran) 4 mg IVPUSH Q6H PRN PRN Reason: Nausea/Vomiting Sodium Chloride (Saline Flush) 10 ml FLUSH ASDIRECTED PRN PRN Reason: Keep Vein Open Sodium Chloride (Saline Flush) 2.5 ml FLUSH ASDIRECTED PRN PRN Reason: Keep Vein Open Sodium Chloride (Normal Saline) 10 ml IV ASDIRECTED PRN PRN Reason: IV Use Sterile Water (Sterile Water For Irrigation) 1,000 ml IRR ASDIRECTED PRN PRN Reason: delivery - Exam General: Reports: Alert, Oriented, Cooperative, No Acute Distress Lungs: Reports: Normal Respiratory Effort Cardiovascular: Reports: Regular Rate, Regular Rhythm GI/Abdominal Exam: Soft, Non-Tender (Female) Exam: Deferred Rectal (Female) Exam: Deferred Back Exam: Reports: Full Range of Motion Extremities: Normal Inspection, Normal Range of Motion, Non-Tender, Normal Capillary Refill Skin: Reports: Warm, Dry, Intact Neurological: Reports: No New Focal Deficit, Normal Speech, Normal Tone Psy/Mental Status: Reports: Alert, Normal Affect, Normal Mood
[2019-10-15 09:34] VITALS: BP 98/51; PULSE 60
--- NOTE | 2019-10-15 10:38 | OR ---
SURGEON: Leon Wright MD DATE OF PROCEDURE: 10/14/2019 Ms. Damon is a 19-year-old patient, primigravida. She is followed in our office primarily by our nurse technology coach. She had an uncomplicated . Her GBS status was negative. Her diabetes screen was negative. The patient is admitted in active labor. At the time of the admission, she was 6 cm, complete vertex, and -1 station. She had epidural anesthesia for labor analgesia. The patient later on required Pitocin for augmentation of labor. She became complete-complete, 0 to +1, and commenced pushing and the patient pushed in excess of 2 hours. I was consulted for evaluation. At the time of my arrival, heart rate was category 1 and vital signs were stable. The patient was in control. Her pain is manageable. My examination is so she is complete-complete vertex, +2 station, in occiput anterior. I assessed her pelvis and I felt that it is amenable and possibly we can deliver this fetus with the vacuum extraction. I explained the vacuum extraction to the parent, and after obtaining consent, kiwi vacuum is applied, and while the patient is pushing and the smoke jumper is attending the delivery, with 1 pull and 2 pushes, I was able to accomplish vaginal delivery. Delivery of the shoulders happened without any problem. There was a tight nuchal cord and the patient was handed to the smoke jumper for resuscitation. Later on, the score was reported to be 7 and 9. The weight is not available. There was no vaginal, perineal, or cervical tear. Estimated blood loss is 300 to 350 mL. heart rate was category I. There was no complication in the delivery process or the labor process. KAELYN / MEGHAN /[id number]
== END 2019-10-15 15:15 | disposition home or self-care (01) | DRG 807 ==
LOC: MW.OBCHECK 17:36 → MW.OB 17:38 → MW.OBCHECK 19:10 → MW.OB 19:10 → OBSVTOIN 10-14 11:37 → MW.OB 10-14 16:17
PROVIDERS: ADMIT Obstetrics & Gynecology; ATTEND Obstetrics & Gynecology
PROC: 10D07Z6 Extraction of Products of Conception, Vacuum, Via Natural or Artificial Opening (ICD-10-PCS; principal; 2019-10-14)
PROC: 3E0R3BZ Introduction of Anesthetic Agent into Spinal Canal, Percutaneous Approach (ICD-10-PCS; 2019-10-14)
DX: O48.0 Post-term pregnancy (principal); Z37.0 Single live birth; Z3A.40 40 weeks gestation of pregnancy; O99.824 Streptococcus B carrier state complicating childbirth; O69.1XX0 Labor and delivery complicated by cord around neck, with compression, not applicable or unspecified
CPT/HCPCS: 01967; 36415; 51702; 59025; 59409; 81003; 85027; 86592; 86593; 86850; 86900; 86901; A9270-GY; J0290; J2590; J3010; J7050; J7120; U0002